=== PATIENT | female | born 1940 | race African-American/Black ===

== ENCOUNTER 2020-02-10 19:51 | Emergency (ER) | payer MEDICARE ==
[~2020-02-10] VITALS: Ht 165.1 cm; Wt 68.0 kg
[~2020-02-10 19:51] MED LIST: AMLODIPINE BESYL5 MG ORAL; ATORVASTATIN CA40 MG ORAL; BENADRYL25 MG ORAL; CLOPIDOGREL75 MG ORAL; ISOSORBIDE MONO30 M1 PO; MEDROL DOSEPAK4 MG ORAL; METOPROLOL TAR100 MG ORAL; SENNA8.6 M2 PO; SENSIPAR30 MG ORAL; VITAMIN D1000 UNI1 ORAL
[2020-02-10 20:00] VITALS: BP 162/59
[2020-02-10] MEDS ORDERED: STOOL SOFTENER250 MG PO (20:03)
--- NOTE | 2020-02-10 20:07 | Emergency Room Report ---
History of Present Illness General Chief Complaint: Chest Pain Source: Patient Present Illness HPI Patient is a 80-year-old female brought in by EMS after increased chest pain and difficulty with breathing. Prior history of dialysis. She reportedly was dialyzed earlier today. She had not been vomiting. Reports having increased shortness of breath as well as chest discomfort. Left sided pain, onset today. History is markedly limited by patient's mental status. Patient was brought in from nursing facility. COVID-19 risk:Contact w/high r: No COVID-19 risk:Travel to affect: No Has patient experienced gómez: No Allergies: Coded Allergies: NSAIDS (NON-STEROIDAL ANTI-INFLAMMA (Verified Allergy, Unknown, 12/02/17) PENICILLINS (Unverified Allergy, Unknown, 05/11/15) Patient History Past Medical History: see triage record Reviewed Nursing Documentation: PMH: Agreed; PSxH: Agreed Nursing Documentation-PMH Hx Hypertension: Yes Hx Dialysis: Yes - M-W-F Hx Cerebrovascular Accident: Yes Review of Systems All Other Systems: negative except mentioned in HPI Physical Exam Vital Signs Date Time Temp Pulse Resp B/P (MAP) Pulse Ox O2 Delivery O2 Flow Rate FiO2 02/10/20 19:54 97.7 84 20 97/55 (69) 94 Non-Rebreather 15.0 Sp02 EP Interpretation: reviewed, normal General Appearance: normal inspection, alert, moderate distress Head: atraumatic ENT: normal ENT inspection, hearing grossly normal, normal voice Neck: normal inspection, full range of motion, supple, no bony tend Respiratory: normal breath sounds, no respiratory distress, no retraction, no wheezing, other - tachypnea Cardiovascular #1: regular rate, rhythm, no edema, other - left upper extremity dialysis access Gastrointestinal: normal inspection, normal bowel sounds, non tender, soft, no guarding, no hernia Genitourinary: no CVA tenderness Musculoskeletal: normal inspection, back normal, normal range of motion Neurologic: alert, responsive, speech normal, normal inspection Psychiatric: normal inspection, judgement/insight normal, mood/affect normal Medical Decision Making Diagnostic Impression: Primary Impression: ESRD (end stage renal disease) Additional Impressions: Chest pain Pulmonary edema ER Course Patient presented for chest pain. Differential diagnosis include was not limited to pneumonia, bronchitis, CHF among others. Because of complexity of patient's case laboratory tests and imaging studies were ordered. Patient was noted to have recent dialysis. She was noted to be somewhat short of breath. Laboratory testing was notable for elevated lactic acid level. Chest x-ray 1 view read by radiology showed reticulonodular opacities bilaterally differential was pulmonary edema versus atypical infection. Patient's troponin was noted to be negative.Patient started on supplemental oxygen via nasal cannula. Patient be likely admitted for further evaluation and treatment of chest discomfort.Patient's troponin was noted to be negative. She was given IV fluids as well as IV antibiotics. Lab testing showed elevated BNP. ABG showed alkalosis. lactic acid was elevated. Patient was endorsed to Dr. Lozano pending discussion with Castillo for likely admission due to pulmonary edema vs atypical infection. Labs Test 02/10/20 20:25 02/10/20 20:42 White Blood Count 12.0 K/UL (4.8-10.8) Red Blood Count 4.24 M/UL (4.20-5.40) Hemoglobin 12.0 G/DL (12.0-16.0) Hematocrit 38.1 % (37.0-47.0) Mean Corpuscular Volume 90 FL (80-99) Mean Corpuscular Hemoglobin 28.3 PG (27.0-31.0) Mean Corpuscular Hemoglobin Concent 31.5 G/DL (32.0-36.0) Red Cell Distribution Width 15.4 % (11.6-14.8) Platelet Count 356 K/UL (150-450) Mean Platelet Volume 6.5 FL (6.5-10.1) Neutrophils (%) (Auto) 89.4 % (45.0-75.0) Lymphocytes (%) (Auto) 4.4 % (20.0-45.0) Monocytes (%) (Auto) 4.9 % (1.0-10.0) Eosinophils (%) (Auto) 0.2 % (0.0-3.0) Basophils (%) (Auto) 1.2 % (0.0-2.0) Lactic Acid Level 2.20 mmol/L (0.4-2.0) Troponin I 0.000 ng/mL (0.000-0.056) Arterial Blood pH 7.550 (7.350-7.450) Arterial Blood Partial Pressure CO2 36.3 mmHg (35.0-45.0) Arterial Blood Partial Pressure O2 72.9 mmHg (75.0-100.0) Arterial Blood HCO3 31.0 mmol/L (22.0-26.0) Arterial Blood Oxygen Saturation 94.8 % (95-100) Arterial Blood Base Excess 8.2 (-2-2) Macario Test Positive EKG Diagnostic Results Rate: normal Rhythm: NSR ST Segments: no acute changes Rhythm Strip Diag. Results EP Interpretation: yes Rhythm: NSR, no PVC's, no ectopy Last Vital Signs Date Time Temp Pulse Resp B/P (MAP) Pulse Ox O2 Delivery O2 Flow Rate FiO2 02/10/20 19:54 97.7 84 20 97/55 (69) 94 Non-Rebreather 15.0 Status: improved Disposition: XFER SHT-TRM HOSP Condition: Stable Tk Frost MD Feb 10, 2020 20:07
--- NOTE | 2020-02-10 20:38 | Diagnostic Imaging Report ---
EXAM: XR Chest, 1 View CLINICAL HISTORY: SOB TECHNIQUE: Frontal view of the chest. COMPARISON: 05/11/2015 FINDINGS: Lungs: Reticulonodular opacities bilaterally. Pleural space: No pleural effusion. No pneumothorax. Heart: Mildly prominent cardiac silhouette. Bones/joints: Chronic fracture deformities in the ribs on the left. IMPRESSION: Reticulonodular opacities bilaterally. Differential is pulmonary edema versus atypical infection.
[2020-02-10 20:41] LABS: HEMATOCRIT 38.1 % (37.0-47.0); MEAN CORPUSCULAR VOLUME 90 FL (80-99); PLATELET COUNT 356 K/UL (150-450); RED BLOOD COUNT 4.24 M/UL (4.20-5.40); RED CELL DISTRIBUTION WIDTH 15.4 % (11.6-14.8)
[2020-02-10 20:42] LABS: BASOPHILS % (AUTO) 1.2 % (0.0-2.0); EOSINOPHILS % (AUTO) 0.2 % (0.0-3.0); LYMPHOCYTES % (AUTO) 4.4 % (20.0-45.0); MONOCYTES % (AUTO) 4.9 % (1.0-10.0); NEUTROPHILS % (AUTO) 89.4 % (45.0-75.0)
[2020-02-10 21:00] VITALS: BP 168/58
[2020-02-10 21:24] LABS: SODIUM 141 MMOL/L (136-145)
[2020-02-10 21:25] LABS: ALANINE AMINOTRANSFERASE 17 U/L (12-78); ANION GAP 16 mmol/L (5-15); ASPARTATE AMINO TRANSFERASE 19 U/L (15-37); BLOOD UREA NITROGEN 18 mg/dL (7-18); CALCIUM 10.2 MG/DL (8.5-10.1); CARBON DIOXIDE 29 MMOL/L (21-32); CHLORIDE 96 MMOL/L (98-107); CREATININE 3.1 MG/DL (0.55-1.30); POTASSIUM 3.6 MMOL/L (3.5-5.1)
[2020-02-10 21:26] LABS: ALBUMIN 3.7 G/DL (3.4-5.0); ALBUMIN/GLOBULIN RATIO 0.5 (1.0-2.7); ALKALINE PHOSPHATASE 112 U/L (46-116)
[2020-02-10] MEDS ORDERED: Azithromycin 500 MG in D5W 275 ML IVPB ONE (21:30)
[2020-02-10 21:32] LABS: CKMB 0.8 NG/ML (0.0-3.6); CREATINE KINASE 60 U/L (26-308); PHOSPHORUS 2.3 MG/DL (2.5-4.9)
[2020-02-10 21:40] LABS: APPEARANCE,URINE CLEAR; BILIRUBIN, URINE NEGATIVE (NEGATIVE); GLUCOSE, URINE (UA) 1+ (NEGATIVE); KETONES,URINE 1+ (NEGATIVE); LEUKOCYTE ESTERASE ,URINE NEGATIVE (NEGATIVE); NITRITE,URINE NEGATIVE (NEGATIVE); PH,URINE 9 (4.5-8.0); PROTEIN,URINE 3+ (NEGATIVE); UROBILINOGEN,URINE NORMAL MG/DL (0.0-1.0)
[2020-02-10 21:43] LABS: COLOR,URINE YELLOW
[2020-02-10 22:00] VITALS: BP 170/62
[2020-02-10 23:25] VITALS: BP 171/77
== END 2020-02-10 23:25 | disposition short-term general hospital (02) ==
LOC: EDBD 19:51 → EDUNIT# 19:51 → EMR 20:15 → EDBEDREQ 21:03 → EMR 23:25
DX: J81.1 Chronic pulmonary edema (principal); I12.0 Hypertensive chronic kidney disease with stage 5 chronic kidney disease or end stage renal disease; N18.6 End stage renal disease; R07.9 Chest pain, unspecified; Z99.2 Dependence on renal dialysis; Z86.73 Personal history of transient ischemic attack (TIA), and cerebral infarction without residual deficits; Z88.0 Allergy status to penicillin; Z88.6 Allergy status to analgesic agent
CPT/HCPCS: 36415; 36600; 71045; 80053; 81003; 82550; 82553; 82803; 83605; 83735; 83880; 84100; 84484; 85025; 86710; 86850; 86900; 86901; 87040; 87081; 87086; 87181; 93005; 96365; 96367; 99285; J0456; S0077

== ENCOUNTER 2020-02-11 15:45 | Emergency (ER) | payer MEDICARE ==
[~2020-02-11] VITALS: Ht 172.7 cm; Wt 77.1 kg
[2020-02-11 15:41] VITALS: BP 171/57
[~2020-02-11 15:45] MED LIST changes: +STOOL SOFTENER250 MG PO
[2020-02-11] MEDS ORDERED: Omnipaque-300 100ml vial INJ PRN (16:00)
[2020-02-11] MEDS ORDERED: Morphine Sulfate 2mg/ml Inj(IV/IM USE ONLY) IVP ONE (16:00)
[2020-02-11 16:10] LABS: APPEARANCE,URINE CLEAR; BILIRUBIN, URINE NEGATIVE (NEGATIVE); GLUCOSE, URINE (UA) NEGATIVE (NEGATIVE); KETONES,URINE NEGATIVE (NEGATIVE); LEUKOCYTE ESTERASE ,URINE 1+ (NEGATIVE); NITRITE,URINE NEGATIVE (NEGATIVE); PH,URINE 9 (4.5-8.0); PROTEIN,URINE 4+ (NEGATIVE); UROBILINOGEN,URINE NORMAL MG/DL (0.0-1.0)
--- NOTE | 2020-02-11 16:14 | Emergency Room Report ---
History of Present Illness General Chief Complaint: Abdominal Pain Source: Patient, EMS Present Illness HPI Patient transported by EMS from a residential facility complaining of abdominal pain. Apparently she was seen at [facility] yesterday and worked up and observed. She was discharged this morning. She continues to vomit and have pain. Paramedics say that she claims that she vomited 10 times although she does not agree to this at this time. She has difficulty putting a number on the pain but when given 3 options she says the pain is medium. She says is constant. She denies any diarrhea. She has had a little bit of dysuria. The patient is a dialysis patient and still produces urine. She has a slight amount of anxiety and shortness of breath. Dialysis was performed yesterday. Work-up at [facility] reveals labs and a chest x-ray without a CAT scan being done. Apparently dialysis was performed today. Apparently the patient was seen in our emergency department earlier before transfer to [facility]. At that time troponin was negative. No fevers, chills, sore throat, palpitations, joint pain, rashes, depression, anxiety, visual changes, dizziness, headache. Upon reevaluation the patient reports that she was having chest pain and pressure earlier today. This is persisted even through dialysis. COVID-19 risk:Contact w/high r: No COVID-19 risk:Travel to affect: No Has patient experienced gómez: No Allergies: Coded Allergies: NSAIDS (NON-STEROIDAL ANTI-INFLAMMA (Verified Allergy, Unknown, 12/02/17) PENICILLINS (Unverified Allergy, Unknown, 05/11/15) Uncoded Allergies: NSAIDS (Allergy, Unknown, 02/11/20) Patient History Past Medical History: see triage record, old chart reviewed, dialysis Past Surgical History: other - Fistula left upper arm Social History: Denies: smoking, alcohol use, drug use Social History Narrative Residential facility Last Menstrual Period: na Reviewed Nursing Documentation: PMH: Agreed; PSxH: Agreed Nursing Documentation-PMH Past Medical History: No History, Except For Hx Hypertension: Yes Hx Diabetes: Yes Hx Dialysis: Yes - M-W-F Hx Cerebrovascular Accident: Yes Physical Exam Vital Signs Date Time Temp Pulse Resp B/P (MAP) Pulse Ox O2 Delivery O2 Flow Rate FiO2 02/11/20 15:38 98.2 101 19 171/57 (95) 97 Room Air Sp02 EP Interpretation: reviewed, normal General Appearance: alert, non-toxic, mild distress, Chronically Ill Head: normocephalic Eyes: bilateral eye normal inspection ENT: moist mucus membranes Neck: supple Respiratory: respiratory distress, decreased breath sounds, rales Cardiovascular #1: regular rate, rhythm, no edema Cardiovascular #2: 2+ radial (R), 2+ radial (L) Gastrointestinal: normal bowel sounds, soft, no mass, non-distended, no guarding, no rebound, tenderness - Diffuse, decreased bowel sounds Genitourinary: no CVA tenderness Musculoskeletal: back normal, normal range of motion, no calf tenderness Neurologic: alert, oriented x3, grossly normal Psychiatric: anxious Skin: no rash, warm/dry Procedures Critical Care Time Critical Care Time Total Critical Care Time: 105 min bedside evaluation and treatment excludes procedures (EKG). Reason for critical care: Non-STEMI Possible complications: hypotension, hypertension, TX, shock, arrhythmias, metabolic acidosis, end organ damage, respiratory failure. Interventions: Zofran, morphine, aspirin, Nitropaste, multiple consultations with STEMI receiving center, multiple consultation with [facility] Course: Patient presented with abdominal pain. Called with positive troponin. EKG with questionable posterior STEMI. Multiple discussions with [facility]. Patient treated with metoprolol. Repeated EKGs including posterior EKG. Discussion with [facility] physician. He stated emergent catheterization unobtainable. [facility] declines transfer after multiple discussions. Elevated white count and lactate noted. Cefepime ordered. As patient already fluid overloaded no fluid bolus administered. Repeated discussions with [facility] physician. Repeat evaluation of patient. Repeat troponin not increasing. Patient pain-free. Lovenox given. Patient transported with ALS and nurse. Consultations: nursing staff, EMS, [facility]I receiving center Performed by: Dr. Sullivan Tolerated well condition = critical but improved and transferred to higher level of care Medical Decision Making Diagnostic Impression: Primary Impression: NSTEMI (non-ST elevated myocardial infarction) Additional Impressions: Pulmonary edema Qualified Codes: J81.1 - Chronic pulmonary edema End stage renal disease on dialysis Elevated lactic acid level Abdominal pain Qualified Codes: R10.84 - Generalized abdominal pain ER Course Dialysis patient presents with 2 days of abdominal pain. Differential includes acute myocardial infarction, gastroenteritis, diverticulitis, urinary tract infection, bowel ischemia, pancreatitis amongst others. In addition she is mildly dyspneic and hypoxemic and consideration of exclusion of congestive heart failure is indicated. Evaluation with EKG, chest x-ray, CT of the abdomen and labs. Because the patient is a dialysis patient and appears to be in mild pulmonary edema fluids are withheld. The patient is treated with Zofran and morphine. Called with positive troponin. EKG being taken at this time. Aspirin, Nitro paste, metoprolol ordered. EKG with rate of [address] depression septally however not posterior [place]. Prolonged QT interval 525. Called with elevated lactate. Patient with pulmonary edema at this time. Holding on fluids but cefepime ordered. Discussed with [facility] physician. Based on EKG and newly elevated troponin contact [facility] [id number] Delcid [facility] ED - requested posterior 12 lead. Presenting to rough rib grader. 1736 Posterior EKG no STEMI. Anterior with improvement. Recontact [facility]. Patient pain free. Lovenox ordered. Contacted by Dr. Delcid. Cardiology declined. Contacting Jonathan MCMANUS. 1911 Excepted patient to higher level of care at [facility]. Discussed level of transport. Repeat troponin slightly less. Repeat lactic acid normal. Patient remains pain-free and in no distress. Laboratory Tests Test 02/11/20 15:15 02/11/20 15:55 02/11/20 18:50 02/11/20 19:20 Urine Color Yellow Urine Appearance Clear Urine pH 9 (4.5-8.0) Urine Specific [place] 1.015 (1.005-1.035) Urine Protein 4+ (NEGATIVE) H Urine Glucose (UA) Negative (NEGATIVE) Urine Ketones Negative (NEGATIVE) Urine Blood 1+ (NEGATIVE) H Urine Nitrite Negative (NEGATIVE) Urine Bilirubin Negative (NEGATIVE) Urine Urobilinogen Normal MG/DL (0.0-1.0) Urine Leukocyte Esterase 1+ (NEGATIVE) H Urine RBC 2-4 /HPF (0 - 2) H Urine WBC 2-4 /HPF (0 - 2) Urine Squamous Epithelial Cells Few /LPF (NONE/OCC) Urine Bacteria Few /HPF (NONE) White Blood Count 12.1 K/UL (4.8-10.8) H Red Blood Count 3.46 M/UL (4.20-5.40) L Hemoglobin 10.0 G/DL (12.0-16.0) L Hematocrit 31.0 % (37.0-47.0) L Mean Corpuscular Volume 89 FL (80-99) Mean Corpuscular Hemoglobin 29.0 PG (27.0-31.0) Mean Corpuscular Hemoglobin Concent 32.4 G/DL (32.0-36.0) Red Cell Distribution Width 15.5 % (11.6-14.8) H Platelet Count 358 K/UL (150-450) Mean Platelet Volume 6.7 FL (6.5-10.1) Neutrophils (%) (Auto) 81.0 % (45.0-75.0) H Lymphocytes (%) (Auto) 7.9 % (20.0-45.0) L Monocytes (%) (Auto) 7.7 % (1.0-10.0) Eosinophils (%) (Auto) 2.4 % (0.0-3.0) Basophils (%) (Auto) 1.0 % (0.0-2.0) Prothrombin Time 11.9 SEC (9.30-11.50) H Prothrombin Time INR 1.1 (0.9-1.1) Activated Partial Thromboplast Time 29 SEC (23-33) Sodium Level 139 MMOL/L (136-145) Potassium Level 3.2 MMOL/L (3.5-5.1) L Chloride Level 98 MMOL/L (98-107) Carbon Dioxide Level 26 MMOL/L (21-32) Anion Gap 15 mmol/L (5-15) Blood Urea Nitrogen 23 mg/dL (7-18) H Creatinine 4.0 MG/DL (0.55-1.30) H Estimated Glomerular Filtration Rate 13.1 mL/min (>60) Glucose Level 160 MG/DL (74-106) H Lactic Acid Level 3.00 mmol/L (0.4-2.0) H Pending Calcium Level 9.2 MG/DL (8.5-10.1) Total Bilirubin 0.9 MG/DL (0.2-1.0) Aspartate Amino Transferase (AST) 23 U/L (15-37) Alanine Aminotransferase (ALT) 18 U/L (12-78) Alkaline Phosphatase 91 U/L (46-116) Troponin I 1.376 ng/mL (0.000-0.056) 1.213 ng/mL (0.000-0.056) Total Protein 8.7 G/DL (6.4-8.2) H Albumin 3.1 G/DL (3.4-5.0) L Globulin 5.6 g/dL Albumin/Globulin Ratio 0.6 (1.0-2.7) L Lipase 131 U/L (73-393) EKG Diagnostic Results Rate: normal Rhythm: NSR ST Segments: other - ST depression septally Rhythm Strip Diag. Results EP Interpretation: yes Rhythm: NSR, no PVC's, no ectopy, other - initially tachycardia, now NSR Chest X-Ray Diagnostic Results Chest X-Ray Diagnostic Results : Chest X-Ray Ordered: Yes # of Views/Limited/Complete: 1 View Indication: Shortness of Breath EP Interpretation: Yes Interpretation: no effusion, no pneumothorax, other - pulmonary edema somewhat improved from earlier Impression: Other Electronically Signed by: Electronically signed by Rizwan Sullivan MD CT/MRI/US Diagnostic Results CT/MRI/US Diagnostic Results : Imaging Test Ordered: abd/pelvis Impression 1. Left adrenal 1.5 cm nodule probable adenoma 2. Sigmoid diverticulosis. Negative for diverticulitis. 3. Degenerative changes as described above at L4-5, L5-S1. Last Vital Signs Date Time Temp Pulse Resp B/P (MAP) Pulse Ox O2 Delivery O2 Flow Rate FiO2 02/11/20 21:45 98.0 79 17 166/68 98 Nasal Cannula 2.0 79 Status: improved Reevaluation Impression ER notified the prior patient in patient care area COVID-19 positive. Notified EPRP.. Disposition: XFER SHT-TRM HOSP - higher level of care (possible catheterization ) Condition: Critical - Improved, transfer to higher level of care Rizwan Sullivan MD Feb 11, 2020 16:14
[2020-02-11 16:15] LABS: COLOR,URINE YELLOW
[2020-02-11 16:16] LABS: INR 1.1 (0.9-1.1)
[2020-02-11 16:20] LABS: ANION GAP 15 mmol/L (5-15); BLOOD UREA NITROGEN 23 mg/dL (7-18); CALCIUM 9.2 MG/DL (8.5-10.1); CARBON DIOXIDE 26 MMOL/L (21-32); CHLORIDE 98 MMOL/L (98-107); POTASSIUM 3.2 MMOL/L (3.5-5.1); SODIUM 139 MMOL/L (136-145)
[2020-02-11 16:25] LABS: ALANINE AMINOTRANSFERASE 18 U/L (12-78); ALBUMIN 3.1 G/DL (3.4-5.0); ALBUMIN/GLOBULIN RATIO 0.6 (1.0-2.7); ALKALINE PHOSPHATASE 91 U/L (46-116); ASPARTATE AMINO TRANSFERASE 23 U/L (15-37); BILIRUBIN,TOTAL 0.9 MG/DL (0.2-1.0)
[2020-02-11 16:26] LABS: EOSINOPHILS % (AUTO) 2.4 % (0.0-3.0); LYMPHOCYTES % (AUTO) 7.9 % (20.0-45.0); MEAN CORPUSCULAR VOLUME 89 FL (80-99); MONOCYTES % (AUTO) 7.7 % (1.0-10.0); PLATELET COUNT 358 K/UL (150-450); RED BLOOD COUNT 3.46 M/UL (4.20-5.40); RED CELL DISTRIBUTION WIDTH 15.5 % (11.6-14.8); WHITE BLOOD COUNT 12.1 K/UL (4.8-10.8)
[2020-02-11] MEDS ORDERED: Metoprolol Tartrate 5mg/5ml Inj IVP STA (16:31)
[2020-02-11] MEDS ORDERED: Nitroglycerin 2% oint pkt TOPIC ONE (16:45)
--- NOTE | 2020-02-11 17:09 | Diagnostic Imaging Report ---
EXAM: XR Chest, 1 View CLINICAL HISTORY: CP TECHNIQUE: Frontal view of the chest. COMPARISON: Chest x-ray 02/10/202022 FINDINGS: Lungs: Bilateral interstitial prominence, slightly improved. No consolidation. Pleural space: Unremarkable. No pneumothorax. Heart: Mild cardiomegaly. Mediastinum: Unremarkable. Bones/joints: Old left rib fractures. IMPRESSION: Bilateral interstitial prominence, slightly improved.
[2020-02-11] MEDS ORDERED: Cefepime HCl 1 GM in D5W 55 ML IVPB ONE (17:15)
[2020-02-11 17:41] VITALS: BP 165/70
--- NOTE | 2020-02-11 17:55 | Diagnostic Imaging Report ---
CT abdomen and pelvis without contrast History: Abdominal pain Technique: Axial contrast-enhanced CT of the abdomen and pelvis with coronal and sagittal reformatted images. CTDI is 9.2 mGy and DLP is 467. 7 mGy-cm. Technique more: One or more of the following dose reduction techniques were used: automated exposure control, adjustment of the mA and/or kV according to patient size, use of iterative reconstruction technique. Comparison: 05/11/2015 Findings: Lung bases: Small bilateral pleural effusion. Overlying atelectasis is seen. Distal heart and esophagus: Right and left coronary calcifications. Liver: 4 mm low density in the anterior right lobe of the liver. Minimal vascular prominence in the periphery of the right lobe inferior segment. Spleen: Normal Pancreas: Normal Adrenals: 1.5 cm left adrenal nodule. Right adrenal is unremarkable. Kidneys: Multiple bilateral renal cortical cysts ranging in size up to 4. 2 cm. On the right kidney. Retroperitoneum: Atherosclerotic calcification of the abdominal aorta. Bowel: Moderate colonic diverticulosis involving the right colon, scattered in the transverse colon, moderate in the left and sigmoid colon. No inflammatory changes or signs of diverticulitis. Negative for bowel obstruction. Caliber of the small bowel loops is normal. Pelvis: No pelvic free fluid or mass. Bones: Grade 1 anterior listhesis of L4 on L5. Small node at the superior endplate of L1 with mild narrowing of the vertebral body height. L4-5, L5-S1 facet arthropathy is seen. Disc desiccation at L4-5, L5-S1 level are seen. IMPRESSION: 1. Left adrenal 1.5 cm nodule probable adenoma 2. Sigmoid diverticulosis. Negative for diverticulitis. 3. Degenerative changes as described above at L4-5, L5-S1.
[2020-02-11] MEDS ORDERED: Enoxaparin 80mg Inj SUBQ STA (18:11)
[2020-02-11 20:00] VITALS: BP 171/70
[2020-02-11 20:30] VITALS: BP 166/68
[2020-02-11 21:45] VITALS: BP 166/68
== END 2020-02-11 21:45 | disposition short-term general hospital (02) ==
LOC: EDBD 15:45 → EMR 16:00 → EDBEDREQ 16:32 → EDBEDREQSVC 16:32 → EMR 21:45
DX: R10.84 Generalized abdominal pain (principal); I21.4 Non-ST elevation (NSTEMI) myocardial infarction; J81.1 Chronic pulmonary edema; I12.0 Hypertensive chronic kidney disease with stage 5 chronic kidney disease or end stage renal disease; E11.22 Type 2 diabetes mellitus with diabetic chronic kidney disease; N18.6 End stage renal disease; Z99.2 Dependence on renal dialysis; Z86.73 Personal history of transient ischemic attack (TIA), and cerebral infarction without residual deficits; Z88.0 Allergy status to penicillin; Z88.6 Allergy status to analgesic agent; R79.89 Other specified abnormal findings of blood chemistry; K57.90 Diverticulosis of intestine, part unspecified, without perforation or abscess without bleeding
CPT/HCPCS: 36415; 71045; 74177; 80053; 81003; 83605; 83690; 84484; 85025; 85610; 85730; 86850; 86900; 86901; 87040; 87181; 93005; 96365; 96375; 99291; 99292; J0692; J1650; J2270; J2405; Q9967

== ENCOUNTER 2020-09-20 07:52 | Emergency (ER) | payer MEDICARE ==
[~2020-09-20] VITALS: Ht 172.7 cm; Wt 86.2 kg
[2020-09-20 07:55] VITALS: BP 130/60
[2020-09-20] MEDS ORDERED: ATORVASTATIN CA40 MG ORAL (08:00)
[2020-09-20] MEDS ORDERED: VITAMIN D325 MC1 PO (08:00)
[2020-09-20] MEDS ORDERED: SENSIPAR30 MG ORAL (08:00)
[2020-09-20] MEDS ORDERED: AMLODIPINE BESYL5 MG ORAL (08:00)
[2020-09-20] MEDS ORDERED: METOPROLOL TAR100 MG ORAL (08:00)
[2020-09-20] MEDS ORDERED: PLAVIX75 MG ORAL (08:00)
[2020-09-20] MEDS ORDERED: DOCUSATE SODIU250 MG ORAL (08:00)
[2020-09-20] MEDS ORDERED: ISOSORBIDE MONO20 MG PO (08:00)
[2020-09-20] MEDS ORDERED: SENNA PLUS 8.61 EACH PO (08:00)
--- NOTE | 2020-09-20 08:25 | Emergency Room Report ---
History of Present Illness General Chief Complaint: Abdominal Pain Source: Patient, Medical Record, EMS Present Illness HPI [facility]. Per report by EMS the patient is here secondary to abdominal pain. The patient does have dementia, ho wever, the patient denies any pain. The patient states she has not "been feeling well." The patient has no specific complaints. She denies pain, nausea, vomiting, headache. The prison facility was contacted and they report that she was yelling stating that her stomach hurt. That is why they called 911 and have her brought to an emergency department. Of note, the [facility] missed dialysis yesterday. Allergies: Coded Allergies: NSAIDS (NON-STEROIDAL ANTI-INFLAMMA (Verified Allergy, Unknown, 12/02/17) PENICILLINS (Unverified Allergy, Unknown, 05/11/15) Uncoded Allergies: NSAIDS (Allergy, Unknown, 02/11/20) COVID-19 Screening Contact w/high risk pt: No Experienced COVID-19 symptoms?: No COVID-19 Testing performed VOLUNTEER SERVICES DIRECTOR: No Patient History Past Medical History: see triage record, DM, HTN, MN, CAD, dementia, renal disease, dialysis Social History: Denies: smoking, alcohol use, drug use Last Menstrual Period: na Reviewed Nursing Documentation: PMH: Agreed; PSxH: Agreed Nursing Documentation-PMH Past Medical History: No History, Except For Hx Cardiac Problems: Yes - MN, anemia, Hx Hypertension: Yes - hyperlipidemia, osteoarthritis, gout, Hx Diabetes: Yes - DM, Hx Dialysis: Yes - t/th/sat Hx Neurological Problems: Yes - Stroke, muscle weakness, Review of Systems All Other Systems: negative except mentioned in HPI Physical Exam Vital Signs Date Time Temp Pulse Resp B/P (MAP) Pulse Ox O2 Delivery O2 Flow Rate FiO2 09/20/20 07:52 97.0 72 18 130/60 (83) 99 Room Air Sp02 EP Interpretation: reviewed, normal General Appearance: no apparent distress, alert, GCS 15, non-toxic Head: normocephalic, atraumatic Eyes: bilateral eye normal inspection, bilateral eye PERRL ENT: hearing grossly normal, normal pharynx, no angioedema, normal voice Neck: full range of motion, supple/symm/no masses Respiratory: chest non-tender, lungs clear, normal breath sounds, no respiratory distress, no retraction, no accessory muscle use, speaking full sentences Cardiovascular #1: regular rate, rhythm, no edema Gastrointestinal: normal bowel sounds, non tender, soft, non-distended, no guarding, no rebound Rectal: deferred Musculoskeletal: back normal, normal range of motion, gait/station normal, non- tender Neurologic: alert, motor strength/tone normal, sensory intact, responsive, speech normal Psychiatric: mood/affect normal, no suicidal/homicidal ideation Medical Decision Making Diagnostic Impression: Primary Impression: Abdominal pain Additional Impressions: Noncompliance with renal dialysis Resolved abdominal pain ER Course Per report, this patient had complained of abdominal pain. The patient has severe dementia. Possibly she was having a bowel cramp or gastritis. Regardless, on my evaluation the patient was abdominal pain-free with a nontender exam. I reviewed the patient's medical record and 3 days ago she was worked up for the same complaint at [place]. The work-up at that time was also unremarkable. She underwent labs to include CBC, CMP and lipase. She is noted to have an elevated creatinine consistent with missing dialysis. However all of the patient's electrolytes are within normal limits and the patient does not appear fluid overloaded. The patient was returned to the prison [facility] with instructions to get dialysis today or tomorrow. I did contact the patient's primary care physician Dr. Santos. Laboratory Tests Test 09/20/20 08:22 White Blood Count 7.8 K/UL (4.8-10.8) Red Blood Count 3.24 M/UL (4.20-5.40) L Hemoglobin 9.5 G/DL (12.0-16.0) L Hematocrit 29.5 % (37.0-47.0) L Mean Corpuscular Volume 91 FL (80-99) Mean Corpuscular Hemoglobin 29.3 PG (27.0-31.0) Mean Corpuscular Hemoglobin Concent 32.1 G/DL (32.0-36.0) Red Cell Distribution Width 15.6 % (11.6-14.8) H Platelet Count 299 K/UL (150-450) Mean Platelet Volume 6.7 FL (6.5-10.1) Neutrophils (%) (Auto) 74.5 % (45.0-75.0) Lymphocytes (%) (Auto) 11.8 % (20.0-45.0) L Monocytes (%) (Auto) 9.7 % (1.0-10.0) Eosinophils (%) (Auto) 2.9 % (0.0-3.0) Basophils (%) (Auto) 1.2 % (0.0-2.0) Sodium Level 140 MMOL/L (136-145) Potassium Level 3.7 MMOL/L (3.5-5.1) Chloride Level 100 MMOL/L (98-107) Carbon Dioxide Level 27 MMOL/L (21-32) Anion Gap 13 mmol/L (5-15) Blood Urea Nitrogen 79 mg/dL (7-18) H Creatinine 8.8 MG/DL (0.55-1.30) H Estimated Glomerular Filtration Rate 4.4 mL/min (>60) Glucose Level 142 MG/DL (74-106) H Calcium Level 7.2 MG/DL (8.5-10.1) L Total Bilirubin 1.0 MG/DL (0.2-1.0) Aspartate Amino Transferase (AST) 39 U/L (15-37) H Alanine Aminotransferase (ALT) 44 U/L (12-78) Alkaline Phosphatase 83 U/L (46-116) Total Protein 7.5 G/DL (6.4-8.2) Albumin 2.8 G/DL (3.4-5.0) L Globulin 4.7 g/dL Albumin/Globulin Ratio 0.6 (1.0-2.7) L Lipase 226 U/L (73-393) Microbiology Date/Time Source Procedure Growth Status 09/20/20 08:22 Nasopharynx SARS-CoV-2 RdRp Gene Assay - Final Complete Last Vital Signs Date Time Temp Pulse Resp B/P (MAP) Pulse Ox O2 Delivery O2 Flow Rate FiO2 09/20/20 07:52 97.0 72 18 130/60 (83) 99 Room Air Status: improved Disposition: HOME, SELF-CARE Condition: Improved Patient Instructions: Abdominal Pain, Adult Arleth Barbosa DO Sep 20, 2020 08:25
[2020-09-20 08:47] LABS: BASOPHILS % (AUTO) 1.2 % (0.0-2.0); EOSINOPHILS % (AUTO) 2.9 % (0.0-3.0); HEMATOCRIT 29.5 % (37.0-47.0); HEMOGLOBIN 9.5 G/DL (12.0-16.0); LYMPHOCYTES % (AUTO) 11.8 % (20.0-45.0); MEAN CORPUSCULAR VOLUME 91 FL (80-99); MONOCYTES % (AUTO) 9.7 % (1.0-10.0); NEUTROPHILS % (AUTO) 74.5 % (45.0-75.0); PLATELET COUNT 299 K/UL (150-450); RED BLOOD COUNT 3.24 M/UL (4.20-5.40); RED CELL DISTRIBUTION WIDTH 15.6 % (11.6-14.8); WHITE BLOOD COUNT 7.8 K/UL (4.8-10.8)
[2020-09-20 08:54] LABS: CALCIUM 7.2 MG/DL (8.5-10.1); CREATININE 8.8 MG/DL (0.55-1.30); POTASSIUM 3.7 MMOL/L (3.5-5.1)
[2020-09-20 08:59] LABS: ALBUMIN 2.8 G/DL (3.4-5.0); ALBUMIN/GLOBULIN RATIO 0.6 (1.0-2.7)
[2020-09-20 12:04] VITALS: BP 152/78
== END 2020-09-20 12:16 | disposition home or self-care (01) ==
LOC: EDBD → EMR 08:45 → MERGE 08:45 → CANBEDREQ 11:28 → EMR 12:16
DX: R10.9 Unspecified abdominal pain (principal); Z91.15 Patient's noncompliance with renal dialysis; N28.9 Disorder of kidney and ureter, unspecified; F03.90 Unspecified dementia, unspecified severity, without behavioral disturbance, psychotic disturbance, mood disturbance, and anxiety; E11.9 Type 2 diabetes mellitus without complications; E78.5 Hyperlipidemia, unspecified; M19.90 Unspecified osteoarthritis, unspecified site; Z86.73 Personal history of transient ischemic attack (TIA), and cerebral infarction without residual deficits; I25.2 Old myocardial infarction; Z88.0 Allergy status to penicillin; Z88.6 Allergy status to analgesic agent
CPT/HCPCS: 36415; 80053; 83690; 85025; 99283; U0002